=== PATIENT | female | born 1975 | race Two or more races ===

== ENCOUNTER 2018-04-08 16:36 | Emergency (ER) | payer OTHER ==
[2018-04-08] MEDS: ALPRAZOLAM 0.25 MG TAB PO (21:03)
== END 2018-04-08 22:01 | disposition home or self-care (01) ==
LOC: FTE 16:36 → E/R 22:01
DX: F41.9 Anxiety disorder, unspecified (principal); R40.2142 Coma scale, eyes open, spontaneous, at arrival to emergency department; R40.2362 Coma scale, best motor response, obeys commands, at arrival to emergency department; R40.2252 Coma scale, best verbal response, oriented, at arrival to emergency department
CPT/HCPCS: 93005; 99283-25